=== PATIENT | male | born 1950 | race Caucasian/White ===

== ENCOUNTER 2018-09-24 02:52 | Inpatient (IN) ==
[2018-09-24] MEDS ORDERED: methylPREDNISolone 125 MG/2 ML VIAL IVP ONE (02:58)
[2018-09-24] MEDS ORDERED: Ipratropium/Albuterol Neb 3 ML IH ONE (02:58)
[2018-09-24] MEDS ORDERED: Azithromycin 500 MG in D5% in Water 250 ML IVPB ONE (02:58)
[2018-09-24] MEDS ORDERED: cefTRIAXone 2,000 MG in Water for inj. (sterile) 20 ML 10 ML IVP ONE (02:58)
--- NOTE | 2018-09-24 02:58 | Emergency Department Note ---
Disposition Clinical Impression: Acute exacerbation of chronic obstructive airways disease Disposition: Admitted As Inpatient Condition: Fair SOB HPI - General Chief Complaint: ED Shortness of Breath/Dyspnea Stated Complaint: shortness of breath Time Seen by Provider: 09/24/18 02:55 Source: patient, family Mode of arrival: private vehicle Limitations: no limitations Nursing Notes Reviewed: Yes Vital Signs Reviewed: Yes - History of Present Illness Patient relates he started morning with cough and shortness of breath. He believes that he kind upper respiratory infection from his stepson. His cough is been harsh, wheezing to the point of gagging but is otherwise nonproductive. He has had increasing shortness of breath, dyspnea on exertion and chest tightness with his breathing. He denies any chest pain or palpitations. He denies fevers or chills. He has not been having abdominal or back pain or nausea or vomiting. He denies sore throat or headache. Denies muscle aches, joint aches. He does have generalized malaise. He denies any lower extremity swelling, immobilization or injury. He believes this feels like he had with community acquired pneumonia on December 30 of this last year. Pt Subjective Complaint: shortness of breath Onset (ago): day(s) (1) Context: recent illness Severity: moderate, severe Consistency/Duration: gradually worsening Improves with: rest Worsens with: exertion, coughing Known history of: COPD - Related Data Home Medications Medication Instructions Recorded Confirmed Acyclovir [Zovirax] 400 mg PO BID 12/30/17 12/30/17 Albuterol Neb [Proventil Neb] 2.5 mg IH Q4HR 12/30/17 12/30/17 Celecoxib [Celebrex] 100 mg PO BID 12/30/17 12/30/17 Gabapentin [Neurontin] 600 mg PO TID 12/30/17 12/30/17 HYDROcodone/Acet 10/325 mg [[place] 1 tab PO Q6HR PRN 12/30/17 12/30/17 10-325 mg] Pravastatin Sodium [Pravachol] 40 mg PO HS 12/30/17 12/30/17 Umeclidinium Brm/Vilanterol Tr 1 each IH DAILY 12/30/17 12/30/17 [Anoro Ellipta 62.5-25 Mcg INH] Previous Rx's Medication Instructions Recorded Azithromycin [Zithromax] 250 mg PO DAILY #4 tablet 01/01/18 Cefuroxime PO [Ceftin] 500 mg PO Q12HR #8 tablet 01/01/18 Lactobacillus [Culturelle] 1 each PO BID #8 cap.sprink 01/01/18 Allergies Allergy/AdvReac Type Severity Reaction Status Date / Time codeine Allergy Hives Verified 12/30/17 06:11 All systems ED: reviewed and negative except as stated. Past Medical History - Past Medical History Attestation: Yes The following information was validated with the patient. Source: patient, old records reviewed, obtained from family, nursing notes reviewed Medical history: Reports: COPD, hypertension, other (Obstructive sleep apnea) Surgical history: Reports: appendectomy, knee replacement, orthopedic, other (2 neck Surgeries) Psychiatric history: Reports: no psych history - Social History Smoking Status: Current every day smoker Smokeless Tobacco Status: No Alcohol use: Reports: none Drug use: Reports: marijuana Physical Exam - General Limitations: no limitations General appearance: alert, anxious, in distress - Head Head exam: atraumatic, normocephalic, normal inspection - Eye Eye exam: Present: normal appearance, PERRL, EOMI - ENT ENT exam: normal exam, normal oropharynx, mucous membranes moist - Neck Neck exam: Present: normal inspection, full ROM, trachea midline. Absent: tenderness, meningismus - Chest Chest inspection: Present: normal inspection, symmetric chest wall rise - Respiratory Respiratory exam: Present: respiratory distress, wheezes, accessory muscle use, prolonged expiratory phase - Cardiovascular Cardiovascular exam: Present: regular rate, normal rhythm, tachycardia, normal heart sounds - Abdominal Exam Abdominal exam: Present: soft, Non-Tender, normal bowel sounds. Absent: tenderness, distention, guarding, rebound, rigidity - Extremities Exam Extremities exam: Present: normal inspection, full ROM, normal capillary refill. Absent: tenderness, pedal edema, calf tenderness - Expanded Lower Extremity Exam Neurovascular/Tendon exam: Present: normal capillary refill. Absent: motor deficit, sensory deficit, tendon deficit Gait: not tested/not observed - Back Exam Back exam: Present: normal inspection, full ROM. Absent: tenderness - Neurological Exam Neurological exam: Present: alert, oriented X3 - Psychiatric Psychiatric exam: Present: normal affect, anxious - Skin Skin exam: Present: warm, dry, intact, normal color. Absent: cyanosis, d iaphoresis, pallor Course Course Narrative: With return of all testing, care is discussed with the patient. He remains dyspneic with a saturation of about 91% on room air. He states he knows he would not be able to walk across the room without severe shortness of breath. Recommended inpatient observation with continuation of respiratory treatment, steroids and antibiotics. He is agreeable and only under the provision that he be able to be discharged by Thursday. Advised he will talk to Dr. Loja and he will hopefully be better for discharge by Thursday but that he could not be held against his will in the hospital longer than he wishes. 0350: Care has been discussed with Dr. Loja and verbal orders been obtained for this patient's observation. Vital Signs Temperature 98.3 F 09/24/18 02:52 Pulse Rate 97 09/24/18 02:52 Respiratory Rate 16 09/24/18 02:52 Blood Pressure 171/105 09/24/18 02:52 O2 Sat by Pulse Oximetry 92 09/24/18 02:52 Temperature 98.3 F 09/24/18 02:52 Pulse Rate 80 09/24/18 03:56 Respiratory Rate 16 09/24/18 03:56 Blood Pressure 137/68 09/24/18 03:56 O2 Sat by Pulse Oximetry 92 09/24/18 03:56 Oxygen Delivery Oxygen Delivery Room Air Shortness of Breath/Dyspnea - Differential Diagnosis Likely: acute exacerbation of chronic obstructive airways disease, asthma with exacerbation. Unlikely: congestive heart failure, pneumonia, arrhythmia - Medical Records Medical records reviewed: Yes I reviewed the patient's medical records. - Lab Data Lab results reviewed: Yes I reviewed the patient's lab results. Lab results narrative: Influenza nasal swab is negative. Result diagrams: 09/24/18 03:10 09/24/18 03:10 Lab Results 09/24/18 09/24/18 09/24/18 Range/Units 03:10 03:10 03:10 WBC 17.6 H (4.3-11.1) K/mcL RBC 5.12 (4.19-5.50) M/mcL Hgb 16.8 (12.9-16.9) g/dL Hct 49.9 (37.5-50.1) % MCV 97.5 (83.0-100.0) fL MCH 32.8 (28.0-33.3) pg MCHC 33.7 (31.6-35.5) g/dL RDW 14.1 (11.5-14.5) % Plt Count 300 (140-400) K/mcL MPV 9.9 (9.4-12.4) fL Immature Gran % 0.4 (0-4) % Seg Neutrophils % 75.2 % Lymphocytes % 12.8 % Monocytes % 7.9 % Eosinophils % 3.1 % Basophils % 0.6 % Neutrophils # 13.2 H (1.6-8.9) K/mcL Lymphocytes # 2.3 (0.6-4.6) K/mcL Monocytes # 1.4 H (0.0-1.3) K/mcL Eosinophils # 0.6 (0.0-0.6) K/mcL Basophils # 0.1 (0.0-0.2) K/mcL Sodium 142 (136-145) mEq/L Potassium 3.7 (3.5-5.1) mEq/L Chloride 107 (98-107) mEq/L Carbon Dioxide 25 (23-29) mEq/L BUN 14 (8-23) mg/dL Creatinine 0.90 (0.70-1.30) mg/dL Est GFR ( Amer) > 60 (> 60) Est GFR (Non-Af Amer) > 60 (> 60) BUN/Creatinine Ratio 16 (6-26) Glucose 92 (70-105) mg/dL Calculated Osmolality 294 (280-300) Lactic Acid 1.9 (0.5-2.2) mmol/L Calcium 9.5 (8.6-10.3) mg/dL Total Bilirubin 0.6 (0.3-1.0) mg/dL Direct Bilirubin 0.1 (0.0-0.2) mg/dL Indirect Bilirubin 0.5 (0.0-1.2) mg/dL AST 16 (13-39) Units/L ALT 19 (7-52) Units/L Alkaline Phosphatase 88 (34-104) Units/L Troponin I < 0.03 (< 0.04) ng/mL B-Natriuretic Peptide (Less than 100) pg/mL Serum Total Protein 7.0 (6.4-8.9) g/dL Albumin 4.2 (3.5-5.7) g/dL Globulin 2.8 (2.4-3.5) g/dL Albumin/Globulin Ratio 1.5 (1.1-2.2) Ethyl Alcohol (Less than 10) mg/dL 09/24/18 09/24/18 Range/Units 03:10 03:10 WBC (4.3-11.1) K/mcL RBC (4.19-5.50) M/mcL Hgb (12.9-16.9) g/dL Hct (37.5-50.1) % MCV (83.0-100.0) fL MCH (28.0-33.3) pg MCHC (31.6-35.5) g/dL RDW (11.5-14.5) % Plt Count (140-400) K/mcL MPV (9.4-12.4) fL Immature Gran % (0-4) % Seg Neutrophils % % Lymphocytes % % Monocytes % % Eosinophils % % Basophils % % Neutrophils # (1.6-8.9) K/mcL Lymphocytes # (0.6-4.6) K/mcL Monocytes # (0.0-1.3) K/mcL Eosinophils # (0.0-0.6) K/mcL Basophils # (0.0-0.2) K/mcL Sodium (136-145) mEq/L Potassium (3.5-5.1) mEq/L Chloride (98-107) mEq/L Carbon Dioxide (23-29) mEq/L BUN (8-23) mg/dL Creatinine (0.70-1.30) mg/dL Est GFR ( Amer) (> 60) Est GFR (Non-Af Amer) (> 60) BUN/Creatinine Ratio (6-26) Glucose (70-105) mg/dL Calculated Osmolality (280-300) Lactic Acid (0.5-2.2) mmol/L Calcium (8.6-10.3) mg/dL Total Bilirubin (0.3-1.0) mg/dL Direct Bilirubin (0.0-0.2) mg/dL Indirect Bilirubin (0.0-1.2) mg/dL AST (13-39) Units/L ALT (7-52) Units/L Alkaline Phosphatase (34-104) Units/L Troponin I (< 0.04) ng/mL B-Natriuretic Peptide 52 (Less than 100) pg/mL Serum Total Protein (6.4-8.9) g/dL Albumin (3.5-5.7) g/dL Globulin (2.4-3.5) g/dL Albumin/Globulin Ratio (1.1-2.2) Ethyl Alcohol < 10 (Less than 10) mg/dL - Radiology Data Radiology results reviewed: Yes I reviewed the patient's radiology results. Single view chest x-ray is performed. This does not demonstrate evidence for infiltrate, effusion, pneumothorax, foreign body or heart failure. Patient has a little bit of fluid in the right horizontal fissure. The cardiac silhouette is normal. I do not see abnormality to the osseous structures of the chest. This is on my interpretation. Impressions Chest X-Ray 09/24/18 02:58 IMPRESSION: Hazy right upper lobe airspace disease either atelectasis or early pneumonia D/ / Fredi Marques MD / Fredi Marques MD Interpreting Provider: Fredi Marques MD - EKG Data EKG attestation: Yes I reviewed and interpreted this EKG. EKG shows normal: Reports: sinus rhythm, axis, intervals, QRS complexes, ST-T waves Rate: Reports: normal (86) Interpretation: Reports: no acute changes, normal EKG
[2018-09-24 03:18] LABS: Basophils # 0.1 K/mcL (0.0-0.2); Basophils % 0.6 %; Eosinophils % 3.1 %; Hematocrit 49.9 % (37.5-50.1); Hemoglobin 16.8 g/dL (12.9-16.9); Immature Granulocytes % 0.4 % (0-4); Lymphocytes # 2.3 K/mcL (0.6-4.6); Lymphocytes % 12.8 %; Mean Corpuscular HGB Conc 33.7 g/dL (31.6-35.5); Mean Corpuscular Hemoglobin 32.8 pg (28.0-33.3); Mean Corpuscular Volume 97.5 fL (83.0-100.0); Mean Platelet Volume 9.9 fL (9.4-12.4); Monocytes # 1.4 K/mcL (0.0-1.3); Monocytes % 7.9 %; Neutrophils # 13.2 K/mcL (1.6-8.9); Platelet Count 300 K/mcL (140-400); Red Blood Count 5.12 M/mcL (4.19-5.50); Red Cell Distribution Width 14.1 % (11.5-14.5); Segmented Neutrophils % 75.2 %
[2018-09-24 03:29] LABS: Eosinophils # 0.6 K/mcL (0.0-0.6)
[2018-09-24 03:38] LABS: Alanine Aminotransferase 19 Units/L (7-52); Albumin 4.2 g/dL (3.5-5.7); Albumin/Globulin Ratio 1.5 (1.1-2.2); Alkaline Phosphatase 88 Units/L (34-104); Aspartate Amino Transferase 16 Units/L (13-39); BUN/Creatinine Ratio 16 (6-26); Bilirubin,Direct 0.1 mg/dL (0.0-0.2); Bilirubin,Indirect 0.5 mg/dL (0.0-1.2); Bilirubin,Total 0.6 mg/dL (0.3-1.0); Blood Urea Nitrogen 14 mg/dL (8-23); Calcium 9.5 mg/dL (8.6-10.3); Carbon Dioxide 25 mEq/L (23-29); Chloride 107 mEq/L (98-107); Globulin 2.8 g/dL (2.4-3.5); Glucose 92 mg/dL (70-105); Osmolality,Calculated 294 (280-300); Potassium 3.7 mEq/L (3.5-5.1); Sodium 142 mEq/L (136-145); Troponin I < 0.03 ng/mL (< 0.04); eGFR For Non-African Americans > 60 (> 60)
[2018-09-24] MEDS ORDERED: 0.9 % Sodium Chloride 1,000 ML IVC SCH (04:53)
[2018-09-24] MEDS ORDERED: Mag Hydrox/Al Hydrox/Simeth 30 ML UDC PO PRN (04:53)
[2018-09-24] MEDS ORDERED: Naloxone 0.4 MG/ML INJ IVP PRN (04:53)
[2018-09-24] MEDS ORDERED: *HR* HYDROcodone/Acet 10/325 mg TABLET PO PRN (04:53)
[2018-09-24] MEDS ORDERED: Albuterol 2.5 MG/3 ML NEBULIZER IH PRN (04:53)
[2018-09-24] MEDS ORDERED: Ondansetron ODT 4 MG TAB.RAPDIS SL PRN (04:53)
[2018-09-24] MEDS ORDERED: MOM Conc 10 ML UD.LIQ PO PRN (04:53)
[2018-09-24] MEDS: Ipratropium/Albuterol Neb 3 ML IH SCH ×4 (05:34→21:35)
[2018-09-24] MEDS: Acyclovir 200 MG CAPSULE PO SCH ×2 (07:59→20:26)
[2018-09-24] MEDS: Gabapentin 300 MG CAPSULE PO SCH ×3 (07:59→20:26)
[2018-09-24] MEDS: Lactobacillus 1 EACH CAP.SPRINK PO SCH ×2 (08:00→20:25)
[2018-09-24] MEDS: predniSONE 20 MG TABLET PO SCH ×2 (08:00→17:29)
[2018-09-24] MEDS: Celecoxib 100 MG CAPSULE PO SCH ×2 (08:00→20:25)
--- NOTE | 2018-09-24 11:33 | Internal Med History&Physical ---
Date of Encounter: 09/24/18 Time of Encounter: 11:10 Assessment and Plan (1) Community acquired pneumonia Current visit: No Status: Acute He has been started on Rocephin and Zithromax with steroids in emergency room. Chest CT we done to further evaluate. Qualifiers: Laterality: right Lung location: upper lobe of lung Qualified Code(s): J18.1 - Lobar pneumonia, unspecified organism (2) Acute exacerbation of chronic obstructive airways disease Current visit: Yes Status: Acute Continue respiratory medicines with antibiotics and steroids as per above. (3) Leukocytosis Current visit: Yes Status: Acute Present on all labs since December 2017. No left shift present. Continue to monitor. Qualifiers: Leukocytosis type: unspecified Qualified Code(s): D72.829 - Elevated white blood cell count, unspecified (4) CARYN (obstructive sleep apnea) Current visit: Yes Status: Acute He has declined to wear CPAP/BiPAP. Internal Medicine - H&P: HPI Chief complaint: Cough and dyspnea Admitted From: Emergency Dept Plans for Post Hospital Care: Home History of present illness: Mr. Boles is a 68 year old male who came to emergency room complaining of increased dyspnea with minimally productive cough onset evening of September 22. He denies fevers chills pain vomiting or diarrhea. He did not improve he came to emergency room. He was evaluated and felt to have exacerbation of COPD. Chest x-ray showed possible right upper lobe pneumonia. He was admitted to [facility] floor for ongoing care needs. He was hospitalized [facility] December 2017 with pneumonia. Respiratory history is significant for having smoked since age 18 up to 2 packs per day. He has a diagnosis of COPD has had PFTs in the past. He does not use home oxygen. He has been diagnosed with CARYN but quit using CPAP when it seemed to worsen his breathing. 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 HAS SLEEP APNEA Psychiatric history: no psych history - Past Surgical History Surgical History: appendectomy, knee replacement, orthopedic, other Additional surgical history: 2 RT KNEE SURG, ABD HERNIA SURG., 3 Neck - Social History Smoking Status: Current every day smoker Smokeless Tobacco Status: No Alcohol use: none Drug use: marijuana - Family History Father Adopted: No Living Status: Hx Family Cardiac Disorders: Yes (Sister heart attack) Hx Family Respiratory Disorders: Yes (mother, sister dad emphezema) Hx Family Cancer: No (Breast) Hx Family GI Disorders: No Hx Family Genitourinary Disorders: No Hx Family Endocrine Disorder: Yes (DM) Hx Family Musculoskeletal Disorders: No Hx Family Neuromuscular Disorders: No Hx Family Neurologic Disorders: No Hx Family HEENT Disorders: No Hx Family Autoimmune Disorders: No Hx Family Reproductive Disorders: No Hx Family Psychosocial Disorders: No Hx Family Medical Disorders: No Internal Medicine - H&P: Meds Acyclovir [Zovirax] 400 mg PO BID 12/30/17 [History] Albuterol Neb [Proventil Neb] 2.5 mg IH Q4HR 12/30/17 [History] Celecoxib [Celebrex] 100 mg PO BID 12/30/17 [History] Gabapentin [Neurontin] 600 mg PO TID 12/30/17 [History] HYDROcodone/Acet 10/325 mg [[place] 10-325 mg] 1 tab PO Q6HR PRN 12/30/17 [History] Pravastatin Sodium [Pravachol] 40 mg PO HS 12/30/17 [History] Umeclidinium Brm/Vilanterol Tr [Anoro Ellipta 62.5-25 Mcg INH] 1 each IH DAILY 12/30/17 [History] Azithromycin [Zithromax] 250 mg PO DAILY #4 tablet 01/01/18 [Rx] Cefuroxime PO [Ceftin] 500 mg PO Q12HR #8 tablet 01/01/18 [Rx] Lactobacillus [Culturelle] 1 each PO BID #8 cap.sprink 01/01/18 [Rx] Allergy/AdvReac Type Severity Reaction Status Date / Time codeine Allergy Hives Verified 12/30/17 06:11 All Systems PM: A 10-system review of systems was performed and is negative for pertinent findings except as documented above in the HPI. Review of systems: Review of systems from his December 2017 [facility] hospitalization were reviewed and revised as below. Gen.: His weight has decreased from 104.326 kg December 2017 to present weight of 98.43 kg. This was unintentional. Cardiovascular: He denies OR hypertension heart failure angina DVT or pulmonary embolus Respiratory: As per history of present illness GI: He denies disorders of his liver gallbladder or exocrine pancreas : He denies hematuria dysuria or kidney stones. He has been treated for genital herpes with suppressive antiviral therapy since 1985. Neurologic: He denies large distribution strokes or seizures. He has had 3 neck surgeries and takes Neurontin for pain for a cervical neuralgia involving his left arm. Endocrine: He has upper lipidemia but denies diabetes or thyroid disease Hematology/oncology: Denies blood disorders cancers or anemia Psychiatric: He has anxiety denies depression or other mental health issues [place] skeletal: He has DJD but denies gout. He has had 3 right knee surgeries (most recent one April 2018) and 3 cervical spine surgeries. - Constitutional Vitals: Temp Pulse Resp BP Pulse Ox 97.9 F 85 26 174/82 91 09/24/18 10:31 09/24/18 10:31 09/24/18 10:31 09/24/18 10:31 09/24/18 10:31 Exam: Gen.: He is a well-developed overweight male lying in bed who appears dyspneic. He is able to have conversation despite the dyspnea. HEENT: Head is atraumatic and normocephalic. Eyes: EOMI. There is no scleral icterus. Mouth: Mucosa is moist. Neck: Supple and nontender. There is no thyromegaly or adenopathy noted. Heart: Regular without murmurs gallops or ectopics Lungs: He has prolonged expiratory phase and mild diffuse wheezing. No inspiratory crackles are heard. Abdomen: He has a well-healed midline abdominal scar from previous ventral hernia repair. There are no masses tenderness or guarding noted. Extremities: There is no cyanosis edema or clubbing noted. Dorsalis pedis and posterior tibial pulses are 1-2 over 2 bilaterally. Neurologic: Mental status: He is talkative and a good historian. Cranial nerves: Smile is symmetric. Forehead wrinkles bilaterally. Tongue protrudes midline. EOMI. Motor: There is no pronator drift. Cerebellar: Finger to nose is intact bilaterally. Skin: Warm and dry Internal Med - H&P Results - Labs CBC & Chem 7: 09/24/18 03:10 09/24/18 03:10 Labs: Short CBC 09/24/18 Range/Units 03:10 WBC 17.6 H (4.3-11.1) K/mcL Hgb 16.8 (12.9-16.9) g/dL Hct 49.9 (37.5-50.1) % Plt Count 300 (140-400) K/mcL Neutrophils # 13.2 H (1.6-8.9) K/mcL BMP 09/24/18 03:10 Sodium 142 Potassium 3.7 Chloride 107 Carbon Dioxide 25 BUN 14 Creatinine 0.90 Glucose 92 Calcium 9.5 Cardiac Enzymes 09/24/18 Range/Units 03:10 Troponin I < 0.03 (< 0.04) ng/mL Liver Function 09/24/18 Range/Units 03:10 Total Bilirubin 0.6 (0.3-1.0) mg/dL Direct Bilirubin 0.1 (0.0-0.2) mg/dL AST 16 (13-39) Units/L ALT 19 (7-52) Units/L Alkaline Phosphatase 88 (34-104) Units/L Albumin 4.2 (3.5-5.7) g/dL - Impressions ITS Impressions Chest X-Ray 09/24/18 02:58 IMPRESSION: Hazy right upper lobe airspace disease either atelectasis or early pneumonia D/ / Fredi Marques MD / Fredi Marques MD Interpreting Provider: Fredi Marques MD
[2018-09-24] MEDS: Budesonide/Formoterol 160/4.5 1 PUFF INH IH SCH ×2 (12:51→21:34)
--- NOTE | 2018-09-24 15:49 | Electrocardiograph Report ---
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
[2018-09-25] MEDS: Ipratropium/Albuterol Neb 3 ML IH SCH ×4 (03:56→21:59)
[2018-09-25 05:33] LABS: Hematocrit 48.4 % (37.5-50.1); Hemoglobin 16.5 g/dL (12.9-16.9); Mean Corpuscular HGB Conc 34.1 g/dL (31.6-35.5); Mean Corpuscular Hemoglobin 33.7 pg (28.0-33.3); Mean Platelet Volume 10.5 fL (9.4-12.4); Monocytes # 1.5 K/mcL (0.0-1.3); Platelet Count 310 K/mcL (140-400); Red Blood Count 4.89 M/mcL (4.19-5.50); Red Cell Distribution Width 14.3 % (11.5-14.5)
[2018-09-25] MEDS: Azithromycin 500 MG in D5% in Water 250 ML IVPB SCH (06:02)
[2018-09-25 06:56] LABS: Neutrophils # 22.9 K/mcL (1.6-8.9)
[2018-09-25 06:57] LABS: Platelet Estimate Normal (Normal)
[2018-09-25] MEDS: Acyclovir 200 MG CAPSULE PO SCH ×2 (08:17→19:48)
[2018-09-25] MEDS: predniSONE 20 MG TABLET PO SCH ×2 (08:18→17:16)
[2018-09-25] MEDS: cefTRIAXone 2,000 MG in Water for inj. (sterile) 20 ML 20 ML IVPB SCH (08:18)
[2018-09-25] MEDS: Lactobacillus 1 EACH CAP.SPRINK PO SCH ×2 (08:18→19:48)
[2018-09-25] MEDS: Gabapentin 300 MG CAPSULE PO SCH ×3 (08:18→19:48)
[2018-09-25] MEDS: Celecoxib 100 MG CAPSULE PO SCH ×2 (08:18→19:47)
[2018-09-25] MEDS: Budesonide/Formoterol 160/4.5 1 PUFF INH IH SCH ×2 (09:22→21:59)
--- NOTE | 2018-09-25 10:19 | Internal Med Progress Note ---
Date of Encounter: 09/25/18 Time of Encounter: 10:11 - Assessment and plan (1) Community acquired pneumonia Current Visit: No Status: Acute Assessment and plan: September 25. Continue Rocephin Zithromax prednisone and recheck labs in a.m. Qualifiers: Laterality: right Lung location: upper lobe of lung Qualified Code(s): J18.1 - Lobar pneumonia, unspecified organism (2) Acute exacerbation of chronic obstructive airways disease Current Visit: Yes Status: Acute Assessment and plan: September 25. Continue respiratory medications with antibiotics and steroids. (3) Leukocytosis Current Visit: Yes Status: Acute Assessment and plan: September 25. Continue to monitor Qualifiers: Leukocytosis type: unspecified Qualified Code(s): D72.829 - Elevated white blood cell count, unspecified (4) CARYN (obstructive sleep apnea) Current Visit: Yes Status: Acute Assessment and plan: September 25. He declined CPAP/BiPAP - Subjective Interval history: September 25. He has no new complaints. - Constitutional Vitals: Temp Pulse Resp BP Pulse Ox 97.7 F 70 18 163/84 95 09/25/18 06:42 09/25/18 06:42 09/25/18 09:23 09/25/18 06:42 09/25/18 09:23 Exam: He still appears slightly dyspneic at rest. His affect is bright and cheerful. Lungs show prolonged expiratory phase with wheezing more on the right than the left. I reviewed his medications and lab results. Internal Medicine: Result - Labs CBC & Chem 7: 09/25/18 04:25 09/24/18 03:10 Labs: Short CBC 09/25/18 Range/Units 04:25 WBC 25.4 H (4.3-11.1) K/mcL Hgb 16.5 (12.9-16.9) g/dL Hct 48.4 (37.5-50.1) % Plt Count 310 (140-400) K/mcL Neutrophils # 22.9 H (1.6-8.9) K/mcL - Impressions Impressions Chest CT 09/24/18 11:42 IMPRESSION: Tree-in-bud infiltrate right upper lobe compatible with pneumonia. Sequela of old rib trauma and previous rib surgery on the left. Gallstone. A 1.2 cm low-attenuation lesion dome of the liver on the left compatible with a benign cyst or hemangioma until proven otherwise. D/ / 09/24/2018 12:29:19 Kuldip Calix MD / patience Interpreting Provider: Kuldip Calix MD - VTE Documentation of Mechanical Device: Graduated compression elastic hosiery Consult Discharge Plan - Plan Referrals: Srinivasan Calderon DO [Primary Care Provider] - 1 week
[2018-09-25 11:49] LABS: BUN/Creatinine Ratio 21 (6-26); Blood Urea Nitrogen 18 mg/dL (8-23); Calcium 9.5 mg/dL (8.6-10.3); Carbon Dioxide 26 mEq/L (23-29); Chloride 106 mEq/L (98-107); Glucose 143 mg/dL (70-105); Osmolality,Calculated 294 (280-300); Potassium 4.7 mEq/L (3.5-5.1); Sodium 140 mEq/L (136-145); eGFR For Non-African Americans > 60 (> 60)
[2018-09-26] MEDS: Ipratropium/Albuterol Neb 3 ML IH SCH ×2 (04:53→10:31)
[2018-09-26] MEDS: Azithromycin 500 MG in D5% in Water 250 ML IVPB SCH (05:48)
[2018-09-26] MEDS ORDERED: *HR* Enoxaparin 40 MG/0.4 ML SYRINGE SQ SCH (06:00)
[2018-09-26 06:19] LABS: Basophils % 0.2 %; Eosinophils % 0.1 %; Hematocrit 49.8 % (37.5-50.1); Hemoglobin 16.7 g/dL (12.9-16.9); Immature Granulocytes % 0.9 % (0-4); Lymphocytes # 1.8 K/mcL (0.6-4.6); Lymphocytes % 9.6 %; Mean Corpuscular HGB Conc 33.5 g/dL (31.6-35.5); Mean Corpuscular Hemoglobin 33.3 pg (28.0-33.3); Mean Corpuscular Volume 99.4 fL (83.0-100.0); Mean Platelet Volume 10.2 fL (9.4-12.4); Monocytes # 1.1 K/mcL (0.0-1.3); Monocytes % 5.9 %; Neutrophils # 15.8 K/mcL (1.6-8.9); Platelet Count 305 K/mcL (140-400); Red Blood Count 5.01 M/mcL (4.19-5.50); Red Cell Distribution Width 14.3 % (11.5-14.5); Segmented Neutrophils % 83.3 %
[2018-09-26 06:23] VITALS: BP 172/74
[2018-09-26] MEDS: Gabapentin 300 MG CAPSULE PO SCH (07:55)
[2018-09-26] MEDS: cefTRIAXone 2,000 MG in Water for inj. (sterile) 20 ML 20 ML IVPB SCH (07:57)
[2018-09-26] MEDS: Acyclovir 200 MG CAPSULE PO SCH (08:00)
[2018-09-26] MEDS: predniSONE 20 MG TABLET PO SCH (08:00)
[2018-09-26] MEDS: Lactobacillus 1 EACH CAP.SPRINK PO SCH (08:00)
[2018-09-26] MEDS: Celecoxib 100 MG CAPSULE PO SCH (08:00)
--- NOTE | 2018-09-26 10:13 | Discharge Summary ---
Orders not resulted at time of discharge: Pending orders 09/24/18 03:10 Culture,Blood [BC] Stat Date of Encounter: 09/26/18 Time of Encounter: 10:05 - Discharge Diagnosis (1) Community acquired pneumonia Priority: Primary Status: Acute Qualifiers: Laterality: right Lung location: upper lobe of lung Qualified Code(s): J18.1 - Lobar pneumonia, unspecified organism (2) Acute exacerbation of chronic obstructive airways disease Priority: Secondary Status: Acute (3) Leukocytosis Priority: Secondary Status: Acute Qualifiers: Leukocytosis type: unspecified Qualified Code(s): D72.829 - Elevated white blood cell count, unspecified (4) CARYN (obstructive sleep apnea) Priority: Secondary Status: Chronic Hospital course: Mr. Boles is a 68 year old male who came to emergency room complaining of increased dyspnea with minimally productive cough onset evening of September 22. He denies fevers chills pain vomiting or diarrhea. He did not improve he came to emergency room. He was evaluated and felt to have exacerbation of COPD. Chest x-ray showed possible right upper lobe pneumonia. He was admitted to [facility] floor for ongoing care needs. Initial orders were written by the emergency room physician. I saw him on September 24 and performed a history and physical. He was given IV Rocephin and Zithromax with steroids in emergency room. He remained afebrile during his hospital stay. Pro-calcitonin returned normal at 0.06. He will continue antibiotics and probiotic for 2 additional days at discharge. I encouraged him to become a nonsmoker. Room air oximetry will be checked on 6 minute walk prior to discharge. He will follow with his PCP within 1 week. - Time Spent with Patient Total time spent providing and/or coordinating discharge services: - Discharge Medications Prescriptions: New predniSONE [PredniSONE] 20 mg PO BIDWM #4 tablet Continued HYDROcodone/Acet 10/325 mg [[place] 10-325 mg] 1 tab PO Q6HR PRN PRN Reason: Analgesia Acyclovir [Zovirax] 400 mg PO BID Celecoxib [Celebrex] 100 mg PO BID Albuterol Neb [Proventil Neb] 2.5 mg IH Q4HR Umeclidinium Brm/Vilanterol Tr [Anoro Ellipta 62.5-25 Mcg INH] 1 each IH DAILY Pravastatin Sodium [Pravachol] 40 mg PO HS Gabapentin [Neurontin] 600 mg PO TID Cefuroxime PO [Ceftin] 500 mg PO Q12HR #4 tablet Lactobacillus [Culturelle] 1 each PO BID #4 cap.sprink Azithromycin [Zithromax] 250 mg PO DAILY #2 tablet Home Medications: Acyclovir [Zovirax] 400 mg PO BID 12/30/17 [History] Albuterol Neb [Proventil Neb] 2.5 mg IH Q4HR 12/30/17 [History] Celecoxib [Celebrex] 100 mg PO BID 12/30/17 [History] Gabapentin [Neurontin] 600 mg PO TID 12/30/17 [History] HYDROcodone/Acet 10/325 mg [[place] 10-325 mg] 1 tab PO Q6HR PRN 12/30/17 [History] Pravastatin Sodium [Pravachol] 40 mg PO HS 12/30/17 [History] Umeclidinium Brm/Vilanterol Tr [Anoro Ellipta 62.5-25 Mcg INH] 1 each IH DAILY 12/30/17 [History] Azithromycin [Zithromax] 250 mg PO DAILY #2 tablet 09/26/18 [Rx] Cefuroxime PO [Ceftin] 500 mg PO Q12HR #4 tablet 09/26/18 [Rx] Lactobacillus [Culturelle] 1 each PO BID #4 cap.sprink 09/26/18 [Rx] predniSONE [PredniSONE] 20 mg PO BIDWM #4 tablet 09/26/18 [Rx] Allergies/Adverse Reactions: Allergy/AdvReac Type Severity Reaction Status Date / Time codeine Allergy Hives Verified 12/30/17 06:11 Date of admission: 09/25/18 13:55 Primary care physician: Srinivasan Calderon DO - Constitutional Vitals: Temp Pulse Resp BP Pulse Ox 98.2 F 66 24 172/74 93 09/26/18 06:19 09/26/18 06:19 09/26/18 06:19 09/26/18 06:19 09/26/18 06:19 - Patient Status Disposition: Home, Self-Care Condition: Fair - Discharge Instructions Follow Up With: Srinivasan Calderon DO [Primary Care Provider] - 1 week - Diet and Activity Activity: resume usual activities as tolerated Diet: advance to your usual diet - VTE Documentation of Mechanical Device: Graduated compression elastic hosiery
[2018-09-26] MEDS: Budesonide/Formoterol 160/4.5 1 PUFF INH IH SCH (10:31)
== END 2018-09-26 13:10 | disposition home or self-care (01) | DRG 194 ==
LOC: INPPIK 02:52 → EMEROOPIK 02:52 → INPPIK 04:11
PROVIDERS: ADMIT Internal Medicine; ATTEND Internal Medicine

== ENCOUNTER 2019-05-27 12:19 | Inpatient (IN) ==
[2019-05-27] MEDS ORDERED: Ipratropium/Albuterol Neb 3 ML IH ONE (12:51)
[2019-05-27] MEDS ORDERED: methylPREDNISolone 125 MG/2 ML VIAL IVP ONE (12:51)
[2019-05-27 13:17] LABS: Basophils # 0.1 K/mcL (0.0-0.2); Basophils % 0.6 %; Eosinophils # 0.2 K/mcL (0.0-0.6); Hematocrit 52.1 % (37.5-50.1); Hemoglobin 17.7 g/dL (12.9-16.9); Immature Granulocytes % 0.4 % (0-4); Lymphocytes % 11.2 %; Mean Corpuscular Hemoglobin 33.1 pg (28.0-33.3); Mean Corpuscular Volume 97.6 fL (83.0-100.0); Mean Platelet Volume 9.7 fL (9.4-12.4); Monocytes # 0.8 K/mcL (0.0-1.3); Monocytes % 5.1 %; Platelet Count 261 K/mcL (140-400); Red Blood Count 5.34 M/mcL (4.19-5.50); Red Cell Distribution Width 13.9 % (11.5-14.5); Segmented Neutrophils % 81.7 %; White Blood Count 14.7 K/mcL (4.3-11.1)
[2019-05-27 13:34] LABS: Lymphocytes # 1.7 K/mcL (0.6-4.6)
[2019-05-27 13:37] LABS: BUN/Creatinine Ratio 17 (6-26); Blood Urea Nitrogen 15 mg/dL (8-23); Calcium 9.4 mg/dL (8.6-10.3); Carbon Dioxide 26 mEq/L (23-29); Chloride 105 mEq/L (98-107); Glucose 106 mg/dL (70-105); Osmolality,Calculated 289 (280-300); Potassium 4.3 mEq/L (3.5-5.1); Sodium 139 mEq/L (136-145); eGFR For African Americans > 60 (> 60); eGFR For Non-African Americans > 60 (> 60)
[2019-05-27] MEDS ORDERED: levoFLOXacin 750 MG/150 ML 750 MG/150 ML BAG IVPB ONE (13:50)
[2019-05-27] MEDS ORDERED: 0.9 % Sodium Chloride 1,000 ML IVC ONE (13:55)
[2019-05-27] MEDS ORDERED: Ondansetron ODT 4 MG TAB.RAPDIS SL PRN (15:30)
[2019-05-27] MEDS ORDERED: Naloxone 0.4 MG/ML INJ IVP PRN (15:30)
[2019-05-27] MEDS ORDERED: Ipratropium/Albuterol Neb 3 ML IH PRN (15:36)
[2019-05-27] MEDS: Albuterol 2.5 MG/3 ML NEBULIZER IH SCH ×2 (16:13→20:01)
[2019-05-27] MEDS: MethylPREDNISolone 40 MG/ML VIAL IVP SCH (18:00)
[2019-05-27] MEDS: Ascorbic Acid 500 MG TABLET PO SCH (18:01)
[2019-05-27] MEDS: Azithromycin 500 MG in 0.9 % Sodium Chloride 250 ML IVPB SCH (18:01)
[2019-05-27] MEDS: Cyanocobalamin (B-12) 1,000 MCG TABLET PO SCH (18:01)
[2019-05-27] MEDS: cefTRIAXone 2,000 MG in Water for inj. (sterile) 20 ML IVP SCH (18:01)
[2019-05-27] MEDS: Gabapentin 300 MG CAPSULE PO SCH ×2 (18:01→20:14)
[2019-05-27] MEDS: Aspirin Enteric Coated 81 MG Tablet PO SCH (18:01)
[2019-05-27] MEDS: 0.9 % Sodium Chloride 1,000 ML IVC SCH (18:02)
[2019-05-27] MEDS: Celecoxib 100 MG CAPSULE PO SCH (20:15)
[2019-05-27 21:19] LABS: Bilirubin,Urine Negative (Negative); Blood,Urine Negative (Negative); Clarity,Urine Clear (Clear); Color,Urine Yellow (Yellow); Glucose,Urine (UA) Normal (Normal); Ketones,Urine Trace mg/dL (Negative); Leukocyte Esterase,Urine Negative (Negative); Nitrite,Urine Negative (Negative); PH,Urine 6.5 pH Units (5.0-8.0); Protein,Urine 30 mg/dL (Neg-Trace); Specific Gravity,Urine >= 1.030 (1.010-1.025); Urobilinogen,Urine Normal (Normal)
[2019-05-28] MEDS: MethylPREDNISolone 40 MG/ML VIAL IVP SCH ×4 (00:06→17:30)
[2019-05-28] MEDS: Albuterol 2.5 MG/3 ML NEBULIZER IH SCH ×6 (00:40→20:24)
[2019-05-28] MEDS ORDERED: Furosemide 20 MG/2 ML VIAL IVP ONE (03:51)
[2019-05-28 07:30] LABS: Basophils % 0.2 %; Hematocrit 48.3 % (37.5-50.1); Hemoglobin 16.7 g/dL (12.9-16.9); Immature Granulocytes % 0.7 % (0-4); Lymphocytes # 1.2 K/mcL (0.6-4.6); Lymphocytes % 5.2 %; Mean Corpuscular HGB Conc 34.6 g/dL (31.6-35.5); Mean Corpuscular Hemoglobin 33.7 pg (28.0-33.3); Mean Corpuscular Volume 97.6 fL (83.0-100.0); Monocytes # 0.6 K/mcL (0.0-1.3); Monocytes % 2.6 %; Platelet Count 258 K/mcL (140-400); Red Blood Count 4.95 M/mcL (4.19-5.50); Segmented Neutrophils % 91.3 %; White Blood Count 22.5 K/mcL (4.3-11.1)
[2019-05-28 07:31] LABS: Basophils # 0.1 K/mcL (0.0-0.2); Neutrophils # 20.5 K/mcL (1.6-8.9)
[2019-05-28 07:48] LABS: Alanine Aminotransferase 13 Units/L (7-52); Albumin/Globulin Ratio 1.5 (1.1-2.2); Alkaline Phosphatase 85 Units/L (34-104); Aspartate Amino Transferase 12 Units/L (13-39); BUN/Creatinine Ratio 20 (6-26); Bilirubin,Total 0.5 mg/dL (0.3-1.0); Blood Urea Nitrogen 19 mg/dL (8-23); Calcium 9.1 mg/dL (8.6-10.3); Carbon Dioxide 24 mEq/L (23-29); Chloride 105 mEq/L (98-107); Globulin 2.6 g/dL (2.4-3.5); Glucose 142 mg/dL (70-105); Osmolality,Calculated 295 (280-300); Sodium 140 mEq/L (136-145); Total Protein 6.6 g/dL (6.4-8.9); eGFR For African Americans > 60 (> 60); eGFR For Non-African Americans > 60 (> 60)
[2019-05-28] MEDS: *HR* Enoxaparin 40 MG/0.4 ML SYRINGE SQ SCH (08:31)
[2019-05-28] MEDS ORDERED: Acyclovir 200 MG CAPSULE PO SCH (09:00)
[2019-05-28] MEDS: Gabapentin 300 MG CAPSULE PO SCH ×3 (09:51→19:51)
[2019-05-28] MEDS: Aspirin Enteric Coated 81 MG Tablet PO SCH (09:51)
[2019-05-28] MEDS: Nicotine 21 MG PATCH.TD24 TD SCH (09:52)
[2019-05-28] MEDS: Cyanocobalamin (B-12) 1,000 MCG TABLET PO SCH (09:52)
[2019-05-28] MEDS: Ascorbic Acid 500 MG TABLET PO SCH (09:52)
[2019-05-28] MEDS: Celecoxib 100 MG CAPSULE PO SCH ×2 (09:52→19:51)
[2019-05-28] MEDS: *HR* HYDROcodone/Acet 10/325 mg TABLET PO PRN (09:52)
[2019-05-28] MEDS: 0.9 % Sodium Chloride 1,000 ML IVC SCH (10:03)
[2019-05-28 12:53] LABS: Adenovirus Not Detected (Not Detect); Bordetella Pertussis Not Detected (Not Detect); Chlamydophila pneumoniae Not Detected (Not Detect); Coronavirus 229E Not Detected (Not Detect); Coronavirus HKU1 Not Detected (Not Detect); Coronavirus NL63 Not Detected (Not Detect); Coronavirus OC43 Not Detected (Not Detect); Human Metapneumovirus Not Detected (Not Detect); Human Rhinovirus/Enterovirus Not Detected (Not Detect); Influenza A Subtype 2009 H1 Not Detected (Not Detect); Influenza A Untypeable Not Detected (Not Detect); Influenza B Not Detected (Not Detect); Mycoplasma pneumoniae Not Detected (Not Detect); Parainfluenza Virus 1 Not Detected (Not Detect); Parainfluenza Virus 2 Not Detected (Not Detect); Parainfluenza Virus 3 Not Detected (Not Detect); Parainfluenza Virus 4 Not Detected (Not Detect); Respiratory Syncytial Virus Not Detected (Not Detect)
[2019-05-28] MEDS: cefTRIAXone 2,000 MG in Water for inj. (sterile) 20 ML IVP SCH (16:22)
[2019-05-28] MEDS: Azithromycin 500 MG in 0.9 % Sodium Chloride 250 ML IVPB SCH (16:22)
[2019-05-29] MEDS: Albuterol 2.5 MG/3 ML NEBULIZER IH SCH ×7 (00:44→23:37)
[2019-05-29] MEDS: MethylPREDNISolone 40 MG/ML VIAL IVP SCH ×5 (01:31→23:54)
[2019-05-29] MEDS: *HR* Enoxaparin 40 MG/0.4 ML SYRINGE SQ SCH (07:59)
[2019-05-29 08:00] LABS: Hematocrit 48.7 % (37.5-50.1); Hemoglobin 16.4 g/dL (12.9-16.9); Mean Corpuscular HGB Conc 33.7 g/dL (31.6-35.5); Mean Corpuscular Hemoglobin 33.2 pg (28.0-33.3); Mean Corpuscular Volume 98.6 fL (83.0-100.0); Mean Platelet Volume 10.2 fL (9.4-12.4); Platelet Count 249 K/mcL (140-400); Red Blood Count 4.94 M/mcL (4.19-5.50); Red Cell Distribution Width 14.2 % (11.5-14.5); White Blood Count 21.6 K/mcL (4.3-11.1)
[2019-05-29] MEDS: Aspirin Enteric Coated 81 MG Tablet PO SCH (08:09)
[2019-05-29] MEDS: Ascorbic Acid 500 MG TABLET PO SCH (08:09)
[2019-05-29] MEDS: Cyanocobalamin (B-12) 1,000 MCG TABLET PO SCH (08:09)
[2019-05-29] MEDS: Nicotine 21 MG PATCH.TD24 TD SCH (08:10)
[2019-05-29] MEDS: Gabapentin 300 MG CAPSULE PO SCH ×3 (08:10→19:56)
[2019-05-29] MEDS: Celecoxib 100 MG CAPSULE PO SCH ×2 (08:10→19:56)
[2019-05-29 08:17] LABS: BUN/Creatinine Ratio 31 (6-26); Blood Urea Nitrogen 28 mg/dL (8-23); Calcium 9.1 mg/dL (8.6-10.3); Carbon Dioxide 26 mEq/L (23-29); Chloride 107 mEq/L (98-107); Glucose 152 mg/dL (70-105); Osmolality,Calculated 298 (280-300); Potassium 4.5 mEq/L (3.5-5.1); Sodium 140 mEq/L (136-145); eGFR For African Americans > 60 (> 60); eGFR For Non-African Americans > 60 (> 60)
[2019-05-29] MEDS: cefTRIAXone 2,000 MG in Water for inj. (sterile) 20 ML IVP SCH (15:38)
[2019-05-29] MEDS: Azithromycin 500 MG in 0.9 % Sodium Chloride 250 ML IVPB SCH (15:38)
[2019-05-30] MEDS: Albuterol 2.5 MG/3 ML NEBULIZER IH SCH ×3 (04:56→12:36)
[2019-05-30] MEDS: MethylPREDNISolone 40 MG/ML VIAL IVP SCH (06:24)
[2019-05-30 07:04] VITALS: BP 152/85
[2019-05-30] MEDS: Aspirin Enteric Coated 81 MG Tablet PO SCH (08:49)
[2019-05-30] MEDS: Ascorbic Acid 500 MG TABLET PO SCH (08:49)
[2019-05-30] MEDS: Gabapentin 300 MG CAPSULE PO SCH (08:49)
[2019-05-30] MEDS: Cyanocobalamin (B-12) 1,000 MCG TABLET PO SCH (08:49)
[2019-05-30] MEDS: Celecoxib 100 MG CAPSULE PO SCH (08:51)
[2019-05-30] MEDS: *HR* HYDROcodone/Acet 10/325 mg TABLET PO PRN (08:51)
[2019-05-30] MEDS: Nicotine 21 MG PATCH.TD24 TD SCH (08:52)
[2019-05-30] MEDS: *HR* Enoxaparin 40 MG/0.4 ML SYRINGE SQ SCH (08:52)
[2019-05-30 09:44] LABS: Hematocrit 49.8 % (37.5-50.1); Hemoglobin 16.7 g/dL (12.9-16.9); Mean Corpuscular HGB Conc 33.5 g/dL (31.6-35.5); Mean Corpuscular Hemoglobin 33.1 pg (28.0-33.3); Mean Corpuscular Volume 98.8 fL (83.0-100.0); Mean Platelet Volume 10.1 fL (9.4-12.4); Platelet Count 256 K/mcL (140-400); Red Blood Count 5.04 M/mcL (4.19-5.50); Red Cell Distribution Width 14.3 % (11.5-14.5); White Blood Count 19.2 K/mcL (4.3-11.1)
[2019-05-30 10:17] LABS: BUN/Creatinine Ratio 28 (6-26); Blood Urea Nitrogen 27 mg/dL (8-23); Calcium 8.9 mg/dL (8.6-10.3); Carbon Dioxide 26 mEq/L (23-29); Chloride 106 mEq/L (98-107); Glucose 194 mg/dL (70-105); Osmolality,Calculated 300 (280-300); Potassium 4.4 mEq/L (3.5-5.1); Sodium 140 mEq/L (136-145); eGFR For African Americans > 60 (> 60); eGFR For Non-African Americans > 60 (> 60)
== END 2019-05-30 12:35 | disposition home or self-care (01) | DRG 194 ==
LOC: INPPIK 12:19 → EMEROOPIK 12:19 → INPPIK 14:50
PROVIDERS: ADMIT Family Medicine; ATTEND Family Medicine